=== PATIENT | male | born 1980 | race Two or more races ===

== ENCOUNTER 2021-06-07 22:24 | Emergency (ER) | payer OTHER, SELFPAY ==
--- NOTE | ~2021-06-07 | XR_ITS ---
EXAMINATION: XR KNEE, LEFT CLINICAL INFORMATION: Pain status post injury COMPARISON: None TECHNIQUE: Four views of the left knee. FINDINGS: Some mild degenerative changes are present with some medial femoral condyle infiltrates. A moderate joint effusion is present. No fracture is seen. XR/XR knee LT 2V IMPRESSION: Mild degenerative changes and joint effusion as described above.
[2021-06-07 23:35] VITALS: BP 150/92; PULSE 93; RESP 18; TEMP 36.1; O2SAT 97; BMI 48.8
[2021-06-08] VITALS: BP 148/80; PULSE 92; RESP 16; TEMP 37.1; O2SAT 97
--- NOTE | 2021-06-08 00:17 | ED_ITS ---
HPI - Extremity Injury (Lower) General Chief Complaint: Extremity Injury, Lower Stated Complaint: knee injury Source: patient Mode of arrival: ambulatory Limitations: no limitations History of Present Illness HPI Narrative: 40-year-old male presents with left knee injury sustained while he was at work last week. States that he stepped out of his truck and twisted his knee. He has used ice, elevation, and an excessive amount of Motrin over the past week to help alleviate his pain. complaint: knee injury Onset (ago): day(s) (5) Type of Injury: hyperextension Place: work Severity: moderate Severity scale (1-10): 8 Relieving factors: nothing Exacerbating factors: weight bearing, movement and palpation Context: walking Associated symptoms: swelling and able to partially bear weight Other symptoms: none Treatments prior to arrival: cold therapy and NSAIDS Related Data Previous Rx's Medication Instructions Recorded oxycodone 5 mg tablet 5 mg PO Q8H PRN #7 tab 06/08/21 Allergies Allergy/AdvReac Type Severity Reaction Status Date / Time No Known Allergies Allergy Unverified 03/25/20 16:22 Review of Systems Review of Systems: Constitutional: No Fever, No Chills ENT/Mouth: No Ear Pain, No Hoarseness, No sore throat Eyes: No Eye Pain, No Swelling, No Redness, No Foreign Body Cardiovascular: No Chest Pain, No SOB Respiratory: No Cough, No Dyspnea Gastrointestinal: No Nausea, No Vomiting, No Diarrhea, No abdominal Pain Genitourinary: No Dysuria, No Hematuria Musculoskeletal: positive left knee swelling and pain, No Myalgias, No Joint Swelling Skin: No Skin lacerations, No rash Neuro: No Weakness, No Numbness, No Paresthesias, No Loss of Consciousness, No Dizziness, No Headache Psych: No Anxiety/Panic, No Depression Heme/Lymph: no easy bruising, no Lymphadenopathy Endocrine: No Polyuria, No Polydipsia Yes all other systems are reviewed and are negative PMFSH Past Medical History Attestation statement: The following information was validated with the patient. Source: old records reviewed Medical History No known health problems Social History Social History Advance Directives: No Advance Directives Information Provided: Yes Physical Exam Vital Signs: Vital Signs: Last Vital Signs Temp 97.0 F 06/07/21 23:35 Pulse 93 06/07/21 23:35 Resp 18 06/07/21 23:35 BP 150/92 H 06/07/21 23:35 Pulse Ox 97 06/07/21 23:35 Body Mass Index 48.8 Appearance: Alert. Oriented X3. No acute distress. Eyes: Pupils equal, round and reactive to light. ENT: Pharynx normal. Neck: Normal inspection. Neck supple. CVS: Normal heart rate and rhythm. Pulses normal. Respiratory: No respiratory distress. Breath sounds normal. Abdomen: Soft and nontender. Skin: Skin warm and dry. Normal skin color. Normal skin turgor. Extremities: Positive left knee effusion, decreased flexion and extension to the left knee. Full range of motion to hips and ankles bilaterally. Brisk capillary refill and equal pedal pulses. Neuro: No motor deficit. No sensory deficit. Cranial nerves 2-12 intact. Course Course Course Narrative: 40-year-old male presents with left knee pain for approximately 5 days after hyperextending after getting out of his truck at work. States that he has been using at least 1600 mg of Motrin on a daily basis since the injury. He has been using ice and elevation with poor effect. X-rays are negative for fracture and dislocation however does show moderate effusion. Will place patient in an Adalid wrap, provide crutches and narcotic pain management. Detailed description with patient regarding narcotic use. Patient verbalized understanding of and agrees to plan of care for discharge to home. MDM - Extremity Injury (Lower) MDM Narrative Medical decision making narrative: Dislocation, sprain, effusion Differential Diagnosis Differential diagnosis: Likely acute internal derangement of knee Medical Records Attestation: I reviewed the patient's medical records. Imaging Data Left knee x-ray: Attestation: I personally reviewed and interpreted this imaging study as follows: Radiologist's impression: EXAMINATION: XR KNEE, LEFT CLINICAL INFORMATION: Pain status post injury? COMPARISON: None? TECHNIQUE: Four views of the left knee. FINDINGS: Some mild degenerative changes are present with some medial femoral condyle infiltrates. A moderate joint effusion is present. No fracture is seen.? XR/XR knee LT 2V IMPRESSION: Mild degenerative changes and joint effusion as described above. Discharge Plan Discharge Clinical Impression: Effusion of left knee Patient Disposition: Home, Self-Care Instructions: Swollen Knee Joint (ED) Additional Instructions: You were evaluated for an injury sustained at work last Sunday. Your x-rays to the left knee is negative for fracture and dislocation but shows a moderate- sized knee effusion. Please use crutches to assist with walking. Apply pressure with Adalid wrap or compression bandage of your choosing. Please take Motrin 600 mg every 6 hours as needed. Please do not exceed recommended dosage per day. You may alternate with Tylenol 650 mg every 6 hours. Do not exceed recommended dosage for Tylenol. Excessive Motrin use can cause internal bleeding and kidney damage. Excessive Tylenol use is deadly and can cause liver failure. I prescribed oxycodone. Oxycodone is a narcotic and has high risk for addiction and abuse. Do not drive or operate machinery while taking this medication. This medication is constipating to consider using MiraLax and Colace as needed to help soften stools. Please follow-up with work connection later this week as this is a work related injury. Please follow-up with orthopedics for left knee effusion. Call tomorrow and request an appointment. Thank you for choosing this emergency department for evaluation. Please follow-up with primary care physician as needed. Return to the emergency department for any new, concerning, or worsening symptoms. Prescriptions: New oxycodone 5 mg tablet 5 mg PO Q8H PRN (Reason: pain) Qty: 7 RF: 0 Referrals: Orin Mcarthur PA-C [Physician [employer] Operator Helper] - 2 days (Left knee effusion)
--- NOTE | 2021-06-08 01:35 | PC.NURSE ---
pt is a&o,no sob or chest pain. Pt has positive cms and pedal pulses. Educated on discharge plan and medication. pt verbalized understanding.
== END 2021-06-08 01:37 | disposition home or self-care (01) ==
PROVIDERS: Emergency Provider Emergency Medicine; PCP Internal Medicine
DX: M25.462 Effusion, left knee (principal); R60.0 Localized edema; Z79.899 Other long term (current) drug therapy
CPT/HCPCS: 73560; 99283; 99284

== ENCOUNTER → 2021-06-27 13:02 | Outpatient (BNVA) | payer OTHER, SELFPAY | PROVIDERS: Visit Provider Orthopaedic Surgery | DX: M25.462 Effusion, left knee (principal) | CPT/HCPCS: 99202 ==

== ENCOUNTER 2021-06-30 14:15 | Outpatient (REF) | payer OTHER, SELFPAY ==
--- NOTE | ~2021-06-30 | MR_ITS ---
EXAMINATION: MR KNEE WITHOUT CONTRAST, LEFT CLINICAL INFORMATION: Left knee pain, swelling, and instability for greater than 3 weeks. Effusion. COMPARISON: Left knee radiographs dated 06/07/2021. TECHNIQUE: MRI of the knee without contrast was performed using routine sequences on a high-field scanner. FINDINGS: MENISCI: Medial Meniscus: Attenuation of the anterior horn and root with mild irregularity, consistent with fraying/partial tearing. Mild adjacent soft tissue edema along the anterior aspect of the medial tibial plateau. Mild medial extrusion of the meniscal body. Lateral Meniscus: Inner margin fraying of the meniscal body and posterior root. LIGAMENTS: Cruciate: Intact. Collateral: Intact. EXTENSOR MECHANISM: Intact. ARTICULAR CARTILAGE/BONE: Patellofemoral Compartment: Full-thickness articular cartilage fissuring at the lateral patellar facet. Central trochlear articular cartilage signal heterogeneity and surface irregularity extending to the medial trochlea. Small marginal osteophytes. Medial Compartment: Weightbearing articular cartilage signal heterogeneity with small marginal osteophytes. Lateral Compartment: Intact articular cartilage. JOINT FLUID AND BURSAE: Small joint effusion with prominent synovitis. Trace Jacobo's cyst. Posterior probable loose body measuring 0.7 cm adjacent to the posterior horn of the medial meniscus. MR/MR knee LT wo con IMPRESSION: 1. Attenuation and fraying/partial tearing of the medial meniscus anterior horn and root. Adjacent soft tissue edema. 2. Inner margin fraying of the lateral meniscal body and posterior root. 3. Mild patellofemoral and medial compartment osteoarthritis. 4. Small joint effusion with prominent synovitis. Trace Jacobo's cyst. Probable posterior loose body measuring 0.7 cm.
== END 2021-06-30 14:16 | disposition home or self-care (01) ==
LOC: HO.MRI 14:15
PROVIDERS: PCP Internal Medicine; Visit Provider Orthopaedic Surgery
DX: M25.462 Effusion, left knee (principal)
CPT/HCPCS: 73721

== ENCOUNTER → 2021-07-28 12:27 | Outpatient (BNVA) | payer OTHER, SELFPAY | PROVIDERS: PCP Internal Medicine; Visit Provider Orthopaedic Surgery | DX: M25.562 Pain in left knee (principal) | CPT/HCPCS: 20610; 99212; J1100 ==

== ENCOUNTER 2021-08-25 12:00 | Outpatient (RCR) | payer OTHER, SELFPAY ==
[2021-08-23 11:13] VITALS: BP 127/76; PULSE 104; O2SAT 96
--- NOTE | 2021-08-23 13:02 | MHC.PT.EP ---
[facility] [place] Office [place] Office [place] Office [address] [place] [address] [phone] F: [phone] F: [phone] F: [phone] F: [phone] Physical Therapy Plan of Care Date of Evaluation: Date of Surgery: Diagnosis: LEFT KNEE SPRAIN Assessment: 40 YO MALE REF TO PT S/P NEAR FALL ON STAIRS 06/05/21 AND SUSTAINING A LEFT KNEE INJURY. HIS MRI IMPRESSION: 1. Attenuation and fraying/partial tearing of the medial meniscus anterior horn and root. Adjacent soft tissue edema. 2. Inner margin fraying of the lateral meniscal body and posterior root. 3. Mild patellofemoral and medial compartment osteoarthritis. 4. Small joint effusion with prominent synovitis. Trace Jacobo's cyst. Probable posterior loose body measuring 0.7 cm. 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 HE DEMONSTRATES IMPAIRMENTS OF DECREASED LEFT KNEE ROM AND STRENGTH, TIGHT PSOAS MUSCLES, ALTERED GAIT AND BALANCE, INCREASED EDEMA AND SIGNIF LEFT KNEE PAIN AND GUARDING. FUNCTIONAL LIMITATIONS INCLUDE DECREASED ABILITY TO PERFORM HOMEMAKING TASKS, STANDING >5 MINUTES, STAIR MANAGEMENT AND GAIT. HE REPORTS DECREASED ABILITY TO PERFORM LIFTING, REACHING, BENDING AND SQUATTING, PUSH AND PULLING, DRIVING. HE STATES HE HAS DECREASED ABILITY TO PERFORM WORK TASKS. 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 Manual therapy to restore motion and function. Therapeutic exercise to improve strength and flexibility. Neuromuscular re-education for posture and balance. Therapeutic activities to return to functional activities of daily living. Electronically signed by: Machelle Bella,PT Please sign and return to therapist. Thank you for your referral.
--- NOTE | 2021-09-27 15:26 | MHC.PT.DC ---
[facility] [place] Office [place] Office [place] Office [address] [place] [address] [facility] [phone] F: [phone] F: [phone] F: [phone] F: [phone] Physical Therapy Discharge Report Diagnosis: LEFT KNEE SPRAIN Date of Surgery: Date of Evaluation: 08/23/21 Date of Discharge: 09/27/21 Treatments to Date: 2 Cancellations to Date: No Shows to Date: 5 Discharge Status: Visit Non-compliance Discharge Summary: Pt HAD POOR ATTENDANCE FOR SCHEDULED PT APPTS, DESPITE OUR PHONE CALLS- HE DID NOT MEET PT GOALS AND IS D/C AT THIS TIME Electronically signed by: Machelle Antonio,PT Please sign and return to therapist. Thank you for your referral.
== END 2021-09-27 15:27 | disposition home or self-care (01) ==
LOC: HO.PT 12:00
PROVIDERS: PCP Internal Medicine; Visit Provider Orthopaedic Surgery
DX: S89.92XD Unspecified injury of left lower leg, subsequent encounter (principal)
CPT/HCPCS: 97110; 97140; 97162